=== PATIENT | female | born 1945 | race Hispanic/Latino ===

== ENCOUNTER 2018-08-11 04:10 | Emergency (ER) | payer MEDICARE, OTHER ==
[~2018-08-11] VITALS: Ht 149.9 cm; Wt 68.5 kg
[~2018-08-11 04:10] MED LIST: ADIPEX-P37.5 M1 PO; ADIPEX-P37.5 MG PO; ASPIR 8181 MG PO; ASPIRIN81 MG PO; B 12; CALCIUM 600 +1 EAC8 PO; CALCIUM 600 +1 EACH PO; COZAAR100 MG PO; COZAAR25 MG PO; FENOFIBRATE54 MG PO; FLUOXETINE HCL20 M1 PO; FLUOXETINE HCL40 MG PO; GLUCOSAMINE-MS1 EAC3 PO; HUMALOG100 UNIT/3 SQ; HUMALOG100 UNITS/ SC; HUMALOG100 UNITS/ SQ; HYDROCHLOROTHIA25 MG PO; LANTUS100 UNITS/ SC; LEVEMIR100 UNIT/1 PO; MELOXICAM15 MG PO; METFORMIN HCL1000 MG PO; METFORMIN HCL500 MG PO; NORCO 5-325 TA1 EACH PO; NOVOLOG100 UNITS1 SC; PLAVIX75 MG PO; SIMVASTATIN80 MG PO; TRICOR48 MG PO; TYLENOL # 31 EA PO; VITAMIN B-121000 MC1 PO
--- OUTSIDE RECORDS SUMMARY | 2018-08-11 04:15 | XMS REPORT ---
Author Author [facility] Address Unknown Phone Unavailable Care Team Providers Care Food Service Utility Worker Name Role Phone UNKNOWN, REFFERING PP Unavailable ONEIL SCHWARTZ M.D. Unavailable Unavailable Corinne SALDANA Unavailable Unavailable Corinne NESS Unavailable Unavailable Problems This patient has no known problems. Allergies, Adverse Reactions, Alerts This patient has no known allergies or adverse reactions. Medications This patient has no known medications. Results Test Description Test Time Test Comments Text Results Atomic Results Result Comments POC Glucose, Blood 2016-11-15 16:12:00 POC Glucose (test code=POCGLUC) 205 mg/dL 70-115 Notify RN or MDIf you consider your patient critically ill, the Claire Accu-Chek InformII metershould not be used for Glucose determinations.Draw a venous Glucose and send to the Main Lab for Analysis. POC Glucose, [id number] 11:29:00* Test Item Value Reference Range Comments POC Glucose (test code=POCGLUC) 88 mg/dL 70-115 If you consider your patient critically ill, the Claire Accu-Chek InformII metershould not be used for Glucose determinations.Draw a venous Glucose and send to the Main Lab for Analysis. POC Glucose, [id number] 07:00:00* Test Item Value Reference Range Comments POC Glucose (test code=POCGLUC) 203 mg/dL 70-115 Notify RN or MDIf you consider your patient critically ill, the Claire Accu-Chek InformII metershould not be used for Glucose determinations.Draw a venous Glucose and send to the Main Lab for Analysis. POC Glucose, [id number] 22:30:00* Test Item Value Reference Range Comments POC Glucose (test code=POCGLUC) 209 mg/dL 70-115 Notify RN or MDIf you consider your patient critically ill, the Claire Accu-Chek InformII metershould not be used for Glucose determinations.Draw a venous Glucose and send to the Main Lab for Analysis. POC Glucose, [id number] 17:43:00* Test Item Value Reference Range Comments POC Glucose (test code=POCGLUC) 150 mg/dL 70-115 If you consider your patient critically ill, the Claire Accu-Chek InformII metershould not be used for Glucose determinations.Draw a venous Glucose and send to the Main Lab for Analysis. POC Glucose, [id number] 11:41:00* Test Item Value Reference Range Comments POC Glucose (test code=POCGLUC) 210 mg/dL 70-115 If you consider your patient critically ill, the Claire Accu-Chek InformII metershould not be used for Glucose determinations.Draw a venous Glucose and send to the Main Lab for Analysis. POC Glucose, [id number] 05:52:00* Test Item Value Reference Range Comments POC Glucose (test code=POCGLUC) 129 mg/dL 70-115 If you consider your patient critically ill, the Claire Accu-Chek InformII metershould not be used for Glucose determinations.Draw a venous Glucose and send to the Main Lab for Analysis. POC Glucose, [id number] 21:16:00* Test Item Value Reference Range Comments POC Glucose (test code=POCGLUC) 212 mg/dL 70-115 If you consider your patient critically ill, the Claire Accu-Chek InformII metershould not be used for Glucose determinations.Draw a venous Glucose and send to the Main Lab for Analysis. POC Glucose, [id number] 16:44:00* Test Item Value Reference Range Comments POC Glucose (test code=POCGLUC) 146 mg/dL 70-115 If you consider your patient critically ill, the Claire Accu-Chek InformII metershould not be used for Glucose determinations.Draw a venous Glucose and send to the Main Lab for Analysis. POC Glucose, [id number] 11:34:00* Test Item Value Reference Range Comments POC Glucose (test code=POCGLUC) 142 mg/dL 70-115 If you consider your patient critically ill, the Claire Accu-Chek InformII metershould not be used for Glucose determinations.Draw a venous Glucose and send to the Main Lab for Analysis. POC Glucose, [id number] 05:50:00* Test Item Value Reference Range Comments POC Glucose (test code=POCGLUC) 94 mg/dL 70-115 If you consider your patient critically ill, the Claire Accu-Chek InformII metershould not be used for Glucose determinations.Draw a venous Glucose and send to the Main Lab for Analysis. POC Glucose, [id number] 20:55:00* Test Item Value Reference Range Comments POC Glucose (test code=POCGLUC) 261 mg/dL 70-115 If you consider your patient critically ill, the Claire Accu-Chek InformII metershould not be used for Glucose determinations.Draw a venous Glucose and send to the Main Lab for Analysis. POC Glucose, [id number] 17:43:00* Test Item Value Reference Range Comments POC Glucose (test code=POCGLUC) 111 mg/dL 70-115 Notify RN or MDIf you consider your patient critically ill, the Claire Accu-Chek InformII metershould not be used for Glucose determinations.Draw a venous Glucose and send to the Main Lab for Analysis. POC Glucose, [id number] 11:11:00* Test Item Value Reference Range Comments POC Glucose (test code=POCGLUC) 245 mg/dL 70-115 Notify RN or MDIf you consider your patient critically ill, the Claire Accu-Chek InformII metershould not be used for Glucose determinations.Draw a venous Glucose and send to the Main Lab for Analysis. CBC with [id number] 08:28:00* Test Item Value Reference Range Comments WBC (test code=WBC) 11.0 K/cumm 4.4-10.5 RBC (test code=RBC) 4.12 M/cumm 3.75-5.20 Hemoglobin (test code=HGB) 12.3 gm/dL 12.2-14.8 Hematocrit (test code=HCT) 38.2 % 36.5-44.4 MCV (test code=MCV) 92.5 fL 80-100 MCH (test code=MCH) 29.8 pg 27.0-32.5 MCHC (test code=MCHC) 32.2 g/dL 32.0-37.5 RDW (test code=RDW) 15.0 % 11.5-14.5 Platelet Count (test code=PLTCT) 436 K/cumm 140-440 MPV (test code=MPV) 9.0 fL Diff Method (test code=DIFFM) Manual Neutrophil (test code=NEUT) 35.0 % 36-70 Bands (test code=BAND) 56.0 % 0-6 Lymphocyte (test code=LYMPH) 1.0 % 12-44 Monocyte (test code=MONO) 4.0 % 0-11 Eosinophil (test code=EOS) 2.0 % 0-7 Basophil (test code=BASO) 2.0 % 0-2 Neutro Abs (test code=ANEUT) 10.0 K/cumm 1.6-7.4 Lymph Abs (test code=ALYMPH) 0.1 K/cumm 0.5-4.6 [place] Abs (test code=AMONO) 0.4 K/cumm 0.0-1.2 Eos Abs (test code=AEOS) 0.22 K/cumm 0.00-0.74 Baso Abs (test code=ABASO) 0.2 K/cumm 0.00-0.21 RBC Morphology (test code=RBCMRPH) Normal Platelet Est (test code=PLTEST) Adequate Platelets on Smear Vancomycin, [id number] 08:17:00* Test Item Value Reference Range Comments Vanco, Trou (test code=VANTR) 15.9 ug/mL 10.0-20.0 Comprehensive Metabolic [id number] 07:10:00* Test Item Value Reference Range Comments Sodium (test code=NA) 139 mmol/L 135-145 Potassium (test code=K) 4.0 mmol/L 3.5-5.1 Chloride (test code=CL) 101 mmol/L 98-105 Carbon Dioxide (test code=CO2) 28 mmol/L 22-29 Glucose (test code=GLU) 92 mg/dL 70-115 Blood Urea Nitrogen (test code=BUN) 16 mg/dL 8-23 Creatinine (test code=CREAT) 0.6 mg/dL 0.5-0.9 Calcium (test code=CA) 9.3 mg/dL 8.3-10.5 Prot Total (test code=TP) 6.2 g/dL 6.4-8.3 Albumin (test code=ALB) 3.5 g/dL 3.5-5.2 A/G Ratio (test code=AGRATIO) 1.3 Ratio Globulin (test code=GLOB) 2.7 2.9-3.1 Bili Total (test code=TBIL) 0.2 mg/dL 0.1-0.9 Alk Phos (test code=APHOS) 54 U/L 35-104 AST (test code=AST) 14 U/L 1-32 ALT (test code=ALT) 9 U/L 1-33 BUN/Creatinine Ratio (test code=BCRATIO) 26.7 Anion Gap (test code=AGAP) 10 mmol/L 7-16 Estimated GFR (test code=GFR) >60 mL/min/1.73m2 eGFR (estimated Glomerular Filtration Rate) is an estimated value,calculated from the patient's serum creatinine using the MDRD equation.It is NOT the patient's actual GFR. The eGFR provides a more clinicallyuseful measure of kidney disease than serum creatinine alone.This calculation takes sex and race into account, if the informationis provided. If the race is not provided, and the patient isAfrican-Omani, multiply by 1.212. If sex is not provided, and thepatient is female, multiply by 0.742. Results for patients <18 years ofage have not been validated by the MDRD study and should be interpretedwith caution.eGFR Result Interpretation:eGFR > or=60 is in the Normal RangeeGFR < 60 may mean kidney diseaseeGFR < 15 may mean kidney failureRanges recommended by the National Kidney Foundat ion,http://nkdep.nih.gov POC Glucose, [id number] 06:39:00* Test Item Value Reference Range Comments POC Glucose (test code=POCGLUC) 90 mg/dL 70-115 Notify RN or MDIf you consider your patient critically ill, the Claire Accu-Chek InformII metershould not be used for Glucose determinations.Draw a venous Glucose and send to the Main Lab for Analysis. POC Glucose, [id number] 21:10:00* Test Item Value Reference Range Comments POC Glucose (test code=POCGLUC) 229 mg/dL 70-115 Notify RN or MDIf you consider your patient critically ill, the Claire Accu-Chek InformII metershould not be used for Glucose determinations.Draw a venous Glucose and send to the Main Lab for Analysis. POC Glucose, [id number] 11:57:00* Test Item Value Reference Range Comments POC Glucose (test code=POCGLUC) 197 mg/dL 70-115 If you consider your patient critically ill, the Claire Accu-Chek InformII metershould not be used for Glucose determinations.Draw a venous Glucose and send to the Main Lab for Analysis. POC Glucose, [id number] 06:40:00* Test Item Value Reference Range Comments POC Glucose (test code=POCGLUC) 95 mg/dL 70-115 Notify RN or MDIf you consider your patient critically ill, the Claire Accu-Chek InformII metershould not be used for Glucose determinations.Draw a venous Glucose and send to the Main Lab for Analysis. POC Glucose, [id number] 21:45:00* Test Item Value Reference Range Comments POC Glucose (test code=POCGLUC) 212 mg/dL 70-115 Notify RN or MDIf you consider your patient critically ill, the Claire Accu-Chek InformII metershould not be used for Glucose determinations.Draw a venous Glucose and send to the Main Lab for Analysis. POC Glucose, [id number] 16:32:00* Test Item Value Reference Range Comments POC Glucose (test code=POCGLUC) 209 mg/dL 70-115 If you consider your patient critically ill, the Claire Accu-Chek InformII metershould not be used for Glucose determinations.Draw a venous Glucose and send to the Main Lab for Analysis. POC Glucose, [id number] 12:39:00* Test Item Value Reference Range Comments POC Glucose (test code=POCGLUC) 233 mg/dL 70-115 If you consider your patient critically ill, the Claire Accu-Chek InformII metershould not be used for Glucose determinations.Draw a venous Glucose and send to the Main Lab for Analysis. POC Glucose, [id number] 07:15:00* Test Item Value Reference Range Comments POC Glucose (test code=POCGLUC) 77 mg/dL 70-115 Notify RN or MDIf you consider your patient critically ill, the Claire Accu-Chek InformII metershould not be used for Glucose determinations.Draw a venous Glucose and send to the Main Lab for Analysis. POC Glucose, [id number] 22:45:00* Test Item Value Reference Range Comments POC Glucose (test code=POCGLUC) 189 mg/dL 70-115 Notify RN or MDIf you consider your patient critically ill, the Claire Accu-Chek InformII metershould not be used for Glucose determinations.Draw a venous Glucose and send to the Main Lab for Analysis. POC Glucose, [id number] 16:15:00* Test Item Value Reference Range Comments POC Glucose (test code=POCGLUC) 182 mg/dL 70-115 Notify RN or MDIf you consider your patient critically ill, the Claire Accu-Chek InformII metershould not be used for Glucose determinations.Draw a venous Glucose and send to the Main Lab for Analysis. POC Glucose, [id number] 11:21:00* Test Item Value Reference Range Comments POC Glucose (test code=POCGLUC) 184 mg/dL 70-115 If you consider your patient critically ill, the Claire Accu-Chek InformII metershould not be used for Glucose determinations.Draw a venous Glucose and send to the Main Lab for Analysis. POC Glucose, [id number] 05:08:00* Test Item Value Reference Range Comments POC Glucose (test code=POCGLUC) 107 mg/dL 70-115 If you consider your patient critically ill, the Claire Accu-Chek InformII metershould not be used for Glucose determinations.Draw a venous Glucose and send to the Main Lab for Analysis. POC Glucose, [id number] 21:34:00* Test Item Value Reference Range Comments POC Glucose (test code=POCGLUC) 316 mg/dL 70-115 If you consider your patient critically ill, the Claire Accu-Chek InformII metershould not be used for Glucose determinations.Draw a venous Glucose and send to the Main Lab for Analysis. POC Glucose, [id number] 16:05:00* Test Item Value Reference Range Comments POC Glucose (test code=POCGLUC) 139 mg/dL 70-115 Notify RN or MDIf you consider your patient critically ill, the Claire Accu-Chek InformII metershould not be used for Glucose determinations.Draw a venous Glucose and send to the Main Lab for Analysis. POC Glucose, [id number] 10:10:00* Test Item Value Reference Range Comments POC Glucose (test code=POCGLUC) 275 mg/dL 70-115 If you consider your patient critically ill, the Claire Accu-Chek InformII metershould not be used for Glucose determinations.Draw a venous Glucose and send to the Main Lab for Analysis. POC Glucose, [id number] 05:22:00* Test Item Value Reference Range Comments POC Glucose (test code=POCGLUC) 133 mg/dL 70-115 If you consider your patient critically ill, the Claire Accu-Chek InformII metershould not be used for Glucose determinations.Draw a venous Glucose and send to the Main Lab for Analysis. Vancomycin, [id number] 20:57:00* Test Item Value Reference Range Comments [place] (test code=VANTR) 11.4 ug/mL 10.0-20.0 POC Glucose, [id number] 20:11:00* Test Item Value Reference Range Comments POC Glucose (test code=POCGLUC) 229 mg/dL 70-115 If you consider your patient critically ill, the Claire Accu-Chek InformII metershould not be used for Glucose determinations.Draw a venous Glucose and send to the Main Lab for Analysis. POC Glucose, [id number] 15:36:00* Test Item Value Reference Range Comments POC Glucose (test code=POCGLUC) 144 mg/dL 70-115 If you consider your patient critically ill, the Claire Accu-Chek InformII metershould not be used for Glucose determinations.Draw a venous Glucose and send to the Main Lab for Analysis. POC Glucose, [id number] 10:54:00* Test Item Value Reference Range Comments POC Glucose (test code=POCGLUC) 167 mg/dL 70-115 If you consider your patient critically ill, the Claire Accu-Chek InformII metershould not be used for Glucose determinations.Draw a venous Glucose and send to the Main Lab for Analysis. POC Glucose, [id number] 04:59:00* Test Item Value Reference Range Comments POC Glucose (test code=POCGLUC) 86 mg/dL 70-115 If you consider your patient critically ill, the Claire Accu-Chek InformII metershould not be used for Glucose determinations.Draw a venous Glucose and send to the Main Lab for Analysis. POC Glucose, [id number] 20:09:00* Test Item Value Reference Range Comments POC Glucose (test code=POCGLUC) 174 mg/dL 70-115 If you consider your patient critically ill, the Claire Accu-Chek InformII metershould not be used for Glucose determinations.Draw a venous Glucose and send to the Main Lab for Analysis. POC Glucose, [id number] 16:37:00* Test Item Value Reference Range Comments POC Glucose (test code=POCGLUC) 226 mg/dL 70-115 If you consider your patient critically ill, the Claire Accu-Chek InformII metershould not be used for Glucose determinations.Draw a venous Glucose and send to the Main Lab for Analysis. POC Glucose, [id number] 11:18:00* Test Item Value Reference Range Comments POC Glucose (test code=POCGLUC) 254 mg/dL 70-115 If you consider your patient critically ill, the Claire Accu-Chek InformII metershould not be used for Glucose determinations.Draw a venous Glucose and send to the Main Lab for Analysis. Basic Metabolic [id number] 06:29:00* Test Item Value Reference Range Comments Sodium (test code=NA) 142 mmol/L 135-145 Potassium (test code=K) 4.3 mmol/L 3.5-5.1 Chloride (test code=CL) 104 mmol/L 98-105 Carbon Dioxide (test code=CO2) 29 mmol/L 22-29 Glucose (test code=GLU) 99 mg/dL 70-115 Blood Urea Nitrogen (test code=BUN) 10 mg/dL 8-23 Creatinine (test code=CREAT) 0.5 mg/dL 0.5-0.9 Calcium (test code=CA) 8.9 mg/dL 8.3-10.5 BUN/Creatinine Ratio (test code=BCRATIO) 20.0 Anion Gap (test code=AGAP) 9 mmol/L 7-16 Estimated GFR (test code=GFR) >60 mL/min/1.73m2 eGFR (estimated Glomerular Filtration Rate) is an estimated value,calculated from the patient's serum creatinine using the MDRD equation.It is NOT the patient's actual GFR. The eGFR provides a more clinicallyuseful measure of kidney disease than serum creatinine alone.This calculation takes sex and race into account, if the informationis provided. If the race is not provided, and the patient isAfrican-Omani, multiply by 1.212. If sex is not provided, and thepatient is female, multiply by 0.742. Results for patients <18 years ofage have not been validated by the MDRD study and should be interpretedwith caution.eGFR Result Interpretation:eGFR > or=60 is in the Normal RangeeGFR < 60 may mean kidney diseaseeGFR < 15 may mean kidney failureRanges recommended by the National Kidney Foundat ion,http://nkdep.nih.gov CBC with [id number] 06:21:00* Test Item Value Reference Range Comments WBC (test code=WBC) 9.7 K/cumm 4.4-10.5 RBC (test code=RBC) 3.77 M/cumm 3.75-5.20 Hemoglobin (test code=HGB) 11.5 gm/dL 12.2-14.8 Hematocrit (test code=HCT) 34.6 % 36.5-44.4 MCV (test code=MCV) 91.7 fL 80-100 MCH (test code=MCH) 30.4 pg 27.0-32.5 MCHC (test code=MCHC) 33.1 g/dL 32.0-37.5 RDW (test code=RDW) 14.7 % 11.5-14.5 Platelet Count (test code=PLTCT) 418 K/cumm 140-440 MPV (test code=MPV) 8.7 fL Diff Method (test code=DIFFM) Auto Neutrophil (test code=NEUT) 45.2 % 36-70 Lymphocyte (test code=LYMPH) 47.3 % 12-44 Monocyte (test code=MONO) 3.5 % 0-11 Eosinophil (test code=EOS) 2.8 % 0-7 Basophil (test code=BASO) 1.2 % 0-2 Neutro Abs (test code=ANEUT) 4.4 K/cumm 1.6-7.4 Lymph Abs (test code=ALYMPH) 4.6 K/cumm 0.5-4.6 [place] Abs (test code=AMONO) 0.3 K/cumm 0.0-1.2 Eos Abs (test code=AEOS) 0.27 K/cumm 0.00-0.74 Baso Abs (test code=ABASO) 0.1 K/cumm 0.00-0.21 POC Glucose, [id number] 05:41:00* Test Item Value Reference Range Comments POC Glucose (test code=POCGLUC) 87 mg/dL 70-115 If you consider your patient critically ill, the Claire Accu-Chek InformII metershould not be used for Glucose determinations.Draw a venous Glucose and send to the Main Lab for Analysis. POC Glucose, [id number] 21:24:00* Test Item Value Reference Range Comments POC Glucose (test code=POCGLUC) 228 mg/dL 70-115 If you consider your patient critically ill, the Claire Accu-Chek InformII metershould not be used for Glucose determinations.Draw a venous Glucose and send to the Main Lab for Analysis. Vancomycin, [id number] 21:23:00* Test Item Value Reference Range Comments [place] (test code=VANTR) 6.7 ug/mL 10.0-20.0 POC Glucose, [id number] 15:12:00* Test Item Value Reference Range Comments POC Glucose (test code=POCGLUC) 177 mg/dL 70-115 Notify RN or MDIf you consider your patient critically ill, the Claire Accu-Chek InformII metershould not be used for Glucose determinations.Draw a venous Glucose and send to the Main Lab for Analysis. POC Glucose, [id number] 11:46:00* Test Item Value Reference Range Comments POC Glucose (test code=POCGLUC) 274 mg/dL 70-115 If you consider your patient critically ill, the Claire Accu-Chek InformII metershould not be used for Glucose determinations.Draw a venous Glucose and send to the Main Lab for Analysis. POC Glucose, [id number] 09:15:00* Test Item Value Reference Range Comments POC Glucose (test code=POCGLUC) 244 mg/dL 70-115 If you consider your patient critically ill, the Claire Accu-Chek InformII metershould not be used for Glucose determinations.Draw a venous Glucose and send to the Main Lab for Analysis. POC Glucose, [id number] 05:33:00* Test Item Value Reference Range Comments POC Glucose (test code=POCGLUC) 196 mg/dL 70-115 If you consider your patient critically ill, the Claire Accu-Chek InformII metershould not be used for Glucose determinations.Draw a venous Glucose and send to the Main Lab for Analysis. POC Glucose, [id number] 19:37:00* Test Item Value Reference Range Comments POC Glucose (test code=POCGLUC) 213 mg/dL 70-115 If you consider your patient critically ill, the Claire Accu-Chek InformII metershould not be used for Glucose determinations.Draw a venous Glucose and send to the Main Lab for Analysis. POC Glucose, [id number] 16:37:00* Test Item Value Reference Range Comments POC Glucose (test code=POCGLUC) 350 mg/dL 70-115 Notify RN or MDIf you consider your patient critically ill, the Claire Accu-Chek InformII metershould not be used for Glucose determinations.Draw a venous Glucose and send to the Main Lab for Analysis. POC Glucose, [id number] 11:49:00* Test Item Value Reference Range Comments POC Glucose (test code=POCGLUC) 264 mg/dL 70-115 Notify RN or MDIf you consider your patient critically ill, the Claire Accu-Chek InformII metershould not be used for Glucose determinations.Draw a venous Glucose and send to the Main Lab for Analysis. Vancomycin, [id number] 06:39:00* Test Item Value Reference Range Comments [place] Trou (test code=VANTR) 10.5 ug/mL 10.0-20.0 Comprehensive Metabolic [id number] 06:39:00* Test Item Value Reference Range Comments Sodium (test code=NA) 138 mmol/L 135-145 Potassium (test code=K) 4.3 mmol/L 3.5-5.1 Chloride (test code=CL) 103 mmol/L 98-105 Carbon Dioxide (test code=CO2) 30 mmol/L 22-29 Glucose (test code=GLU) 198 mg/dL 70-115 Blood Urea Nitrogen (test code=BUN) 10 mg/dL 8-23 Creatinine (test code=CREAT) 0.6 mg/dL 0.5-0.9 Calcium (test code=CA) 8.9 mg/dL 8.3-10.5 Prot Total (test code=TP) 5.6 g/dL 6.4-8.3 Albumin (test code=ALB) 2.9 g/dL 3.5-5.2 A/G Ratio (test code=AGRATIO) 1.1 Ratio Globulin (test code=GLOB) 2.7 2.9-3.1 Bili Total (test code=TBIL) <0.1 mg/dL 0.1-0.9 Alk Phos (test code=APHOS) 52 U/L 35-104 AST (test code=AST) 10 U/L 1-32 ALT (test code=ALT) 6 U/L 1-33 BUN/Creatinine Ratio (test code=BCRATIO) 16.7 Anion Gap (test code=AGAP) 5 mmol/L 7-16 Estimated GFR (test code=GFR) >60 mL/min/1.73m2 eGFR (estimated Glomerular Filtration Rate) is an estimated value,calculated from the patient's serum creatinine using the MDRD equation.It is NOT the patient's actual GFR. The eGFR provides a more clinicallyuseful measure of kidney disease than serum creatinine alone.This calculation takes sex and race into account, if the informationis provided. If the race is not provided, and the patient isAfrican-[place]i, multiply by 1.212. If sex is not provided, and thepatient is female, multiply by 0.742. Results for patients <18 years ofage have not been validated by the MDRD study and should be interpretedwith caution.eGFR Result Interpretation:eGFR > or=60 is in the Normal RangeeGFR < 60 may mean kidney diseaseeGFR < 15 may mean kidney failureRanges recommended by the National Kidney Foundat ion,http://nkdep.nih.gov CBC with [id number] 06:35:00* Test Item Value Reference Range Comments WBC (test code=WBC) 9.7 K/cumm 4.4-10.5 RBC (test code=RBC) 3.61 M/cumm 3.75-5.20 Hemoglobin (test code=HGB) 10.9 gm/dL 12.2-14.8 Hematocrit (test code=HCT) 34.3 % 36.5-44.4 MCV (test code=MCV) 95.1 fL 80-100 MCH (test code=MCH) 30.3 pg 27.0-32.5 MCHC (test code=MCHC) 31.9 g/dL 32.0-37.5 RDW (test code=RDW) 14.2 % 11.5-14.5 Platelet Count (test code=PLTCT) 391 K/cumm 140-440 MPV (test code=MPV) 8.0 fL Diff Method (test code=DIFFM) Auto Neutrophil (test code=NEUT) 39.7 % 36-70 Lymphocyte (test code=LYMPH) 50.0 % 12-44 Monocyte (test code=MONO) 6.7 % 0-11 Eosinophil (test code=EOS) 2.7 % 0-7 Basophil (test code=BASO) 1.0 % 0-2 Neutro Abs (test code=ANEUT) 3.9 K/cumm 1.6-7.4 Lymph Abs (test code=ALYMPH) 4.8 K/cumm 0.5-4.6 [place] Abs (test code=AMONO) 0.7 K/cumm 0.0-1.2 Eos Abs (test code=AEOS) 0.26 K/cumm 0.00-0.74 Baso Abs (test code=ABASO) 0.1 K/cumm 0.00-0.21 POC Glucose, [id number] 04:39:00* Test Item Value Reference Range Comments POC Glucose (test code=POCGLUC) 188 mg/dL 70-115 If you consider your patient critically ill, the Claire Accu-Chek InformII metershould not be used for Glucose determinations.Draw a venous Glucose and send to the Main Lab for Analysis. POC Glucose, [id number] 19:45:00* Test Item Value Reference Range Comments POC Glucose (test code=POCGLUC) 257 mg/dL 70-115 If you consider your patient critically ill, the Claire Accu-Chek InformII metershould not be used for Glucose determinations.Draw a venous Glucose and send to the Main Lab for Analysis. POC Glucose, [id number] 16:23:00* Test Item Value Reference Range Comments POC Glucose (test code=POCGLUC) 205 mg/dL 70-115 Notify RN or MDIf you consider your patient critically ill, the Claire Accu-Chek InformII metershould not be used for Glucose determinations.Draw a venous Glucose and send to the Main Lab for Analysis. POC Glucose, [id number] 11:34:00* Test Item Value Reference Range Comments POC Glucose (test code=POCGLUC) 337 mg/dL 70-115 Notify RN or MDIf you consider your patient critically ill, the Claire Accu-Chek InformII metershould not be used for Glucose determinations.Draw a venous Glucose and send to the Main Lab for Analysis. Culture, Wound [id number] 07:31:00Specimen: BackCollected: 10/31/2016 05:30 Status: Final Last Updated: 11/03/2016 07:31 Gram Stain (Final) (Final) 10/31/16 Few Gram Positive Cocci In Pairs , No WBC'S Culture Result (Final) (Final) 11/01/16 Moderate Staph-coag negative 11/03/2016 Anaerobic culture:No anaerobes isolated at 3 days Isolate (Final) (Final) 11/02/16 Moderate Streptococcus agalactiae POC Glucose, Blood 2016-11-03 04:46:00* Test Item Value Reference Range Comments POC Glucose (test code=POCGLUC) 239 mg/dL 70-115 If you consider your patient critically ill, the Claire Accu-Chek InformII metershould not be used for Glucose determinations.Draw a venous Glucose and send to the Main Lab for Analysis. POC Glucose, [id number] 21:24:00* Test Item Value Reference Range Comments POC Glucose (test code=POCGLUC) 216 mg/dL 70-115 If you consider your patient critically ill, the Claire Accu-Chek InformII metershould not be used for Glucose determinations.Draw a venous Glucose and send to the Main Lab for Analysis. POC Glucose, [id number] 15:22:00* Test Item Value Reference Range Comments POC Glucose (test code=POCGLUC) 207 mg/dL 70-115 If you consider your patient critically ill, the Claire Accu-Chek InformII metershould not be used for Glucose determinations.Draw a venous Glucose and send to the Main Lab for Analysis. POC Glucose, [id number] 12:39:00* Test Item Value Reference Range Comments POC Glucose (test code=POCGLUC) 308 mg/dL 70-115 If you consider your patient critically ill, the Claire Accu-Chek InformII metershould not be used for Glucose determinations.Draw a venous Glucose and send to the Main Lab for Analysis. POC Glucose, [id number] 10:32:00* Test Item Value Reference Range Comments POC Glucose (test code=POCGLUC) 357 mg/dL 70-115 If you consider your patient critically ill, the Claire Accu-Chek InformII metershould not be used for Glucose determinations.Draw a venous Glucose and send to the Main Lab for Analysis. POC Glucose, [id number] 06:05:00* Test Item Value Reference Range Comments POC Glucose (test code=POCGLUC) 281 mg/dL 70-115 If you consider your patient critically ill, the Claire Accu-Chek InformII metershould not be used for Glucose determinations.Draw a venous Glucose and send to the Main Lab for Analysis. Vancomycin, [id number] 23:15:00* Test Item Value Reference Range Comments [place] (test code=VANTR) 5.5 ug/mL 10.0-20.0 POC Glucose, [id number] 21:23:00* Test Item Value Reference Range Comments POC Glucose (test code=POCGLUC) 102 mg/dL 70-115 If you consider your patient critically ill, the Claire Accu-Chek InformII metershould not be used for Glucose determinations.Draw a venous Glucose and send to the Main Lab for Analysis. POC Glucose, [id number] 16:35:00* Test Item Value Reference Range Comments POC Glucose (test code=POCGLUC) 225 mg/dL 70-115 If you consider your patient critically ill, the Claire Accu-Chek InformII metershould not be used for Glucose determinations.Draw a venous Glucose and send to the Main Lab for Analysis. POC Glucose, [id number] 11:34:00* Test Item Value Reference Range Comments POC Glucose (test code=POCGLUC) 236 mg/dL 70-115 If you consider your patient critically ill, the Claire Accu-Chek InformII metershould not be used for Glucose determinations.Draw a venous Glucose and send to the Main Lab for Analysis. POC Glucose, [id number] 06:17:00* Test Item Value Reference Range Comments POC Glucose (test code=POCGLUC) 135 mg/dL 70-115 If you consider your patient critically ill, the Claire Accu-Chek InformII metershould not be used for Glucose determinations.Draw a venous Glucose and send to the Main Lab for Analysis. POC Glucose, [id number] 21:43:00* Test Item Value Reference Range Comments POC Glucose (test code=POCGLUC) 154 mg/dL 70-115 If you consider your patient critically ill, the [facility] Accu-Chek InformII metershould not be used for Glucose determinations.Draw a venous Glucose and send to the Main Lab for Analysis. POC Glucose, [id number] 16:08:00* Test Item Value Reference Range Comments POC Glucose (test code=POCGLUC) 235 mg/dL 70-115 If you consider your patient critically ill, the [facility] Accu-Chek InformII metershould not be used for Glucose determinations.Draw a venous Glucose and send to the Main Lab for Analysis. POC Glucose, [id number] 11:32:00* Test Item Value Reference Range Comments POC Glucose (test code=POCGLUC) 206 mg/dL 70-115 If you consider your patient critically ill, the [facility] Accu-Chek InformII metershould not be used for Glucose determinations.Draw a venous Glucose and send to the Main Lab for Analysis. POC Glucose, [id number] 07:50:00* Test Item Value Reference Range Comments POC Glucose (test code=POCGLUC) 138 mg/dL 70-115 If you consider your patient critically ill, the [facility] Accu-Chek InformII metershould not be used for Glucose determinations.Draw a venous Glucose and send to the Main Lab for Analysis. POC Glucose, [id number] 04:20:00* Test Item Value Reference Range Comments POC Glucose (test code=POCGLUC) 143 mg/dL 70-115 If you consider your patient critically ill, the Claire Accu-Chek InformII metershould not be used for Glucose determinations.Draw a venous Glucose and send to the Main Lab for Analysis. POC Glucose, [id number] 15:41:00* Test Item Value Reference Range Comments POC Glucose (test code=POCGLUC) 168 mg/dL 70-115 If you consider your patient critically ill, the [facility] Accu-Chek InformII metershould not be used for Glucose determinations.Draw a venous Glucose and send to the Main Lab for Analysis. POC Glucose, [id number] 11:10:00* Test Item Value Reference Range Comments POC Glucose (test code=POCGLUC) 251 mg/dL 70-115 If you consider your patient critically ill, the Claire Accu-Chek InformII metershould not be used for Glucose determinations.Draw a venous Glucose and send to the Main Lab for Analysis. [id number] 07:02:00* Test Item Value Reference Range Comments Osmolality [Serum] (test code=CMOSMOS) 298 mOsm/Kg 270-295 Thyroid Stimulating Hormone (TSH)2016-10-30 06:55:00* Test Item Value Reference Range Comments TSH (test code=TSH) 2.45 mIU/mL 0.270-4.200 Glycosylated [id number] 06:53:00* Test Item Value Reference Range Comments HBA1c (test code=HBA1C) 10.1 % 4.8-5.9 C-Reactive Protein, [id number] 06:49:00* Test Item Value Reference Range Comments CRP (test code=CRP) 201.3 mg/L 0.0-5.0 Lipid [id number] 06:49:00* Test Item Value Reference Range Comments Cholesterol (test code=CHOL) 170 mg/dL 0-200 Triglycerides (test code=TRIG) 122 mg/dL 9-200 HDL (test code=HDL) 64 mg/dL 50-60 Chol/HDL (test code=CHOLPHDL) 2.7 Ratio 0.0-4.4 LDL, Calculated (test code=LDLC) 82 0-130 (NOTE)RISK OF HEART DISEASEPublished by [place]i Heart AssociationAnalyte Optimal Boderline Increased RiskCHOL <200 200-239 >240TRIG <150 150- 199 >200HDL Male: >60 <40HDL Female: >60 <50LDL <100 130-159 >160LDL NEAR OPTIMAL IS 100-129 VLDL (test code=VLDL) 24 mg/dL 5-40 LDL/HDL (test code=LDLPHDL) 1 [id number] 06:49:00* Test Item Value Reference Range Comments Phosphorus (test code=PO4) 4.1 mg/dL 2.70-4.50 Magnesium, [id number] 06:49:00* Test Item Value Reference Range Comments Magnesium (test code=MG) 1.9 mg/dL 1.7-2.5 Basic Metabolic [id number] 06:49:00* Test Item Value Reference Range Comments Sodium (test code=NA) 136 mmol/L 135-145 Potassium (test code=K) 4.3 mmol/L 3.5-5.1 Chloride (test code=CL) 95 mmol/L 98-105 Carbon Dioxide (test code=CO2) 27 mmol/L 22-29 Glucose (test code=GLU) 250 mg/dL 70-115 Blood Urea Nitrogen (test code=BUN) 15 mg/dL 8-23 Creatinine (test code=CREAT) 0.6 mg/dL 0.5-0.9 Calcium (test code=CA) 9.4 mg/dL 8.3-10.5 BUN/Creatinine Ratio (test code=BCRATIO) 25.0 Anion Gap (test code=AGAP) 14 mmol/L 7-16 Estimated GFR (test code=GFR) >60 mL/min/1.73m2 eGFR (estimated Glomerular Filtration Rate) is an estimated value,calculated from the patient's serum creatinine using the MDRD equation.It is NOT the patient's actual GFR. The eGFR provides a more clinicallyuseful measure of kidney disease than serum creatinine alone.This calculation takes sex and race into account, if the informationis provided. If the race is not provided, and the patient isAfrican-[place], multiply by 1.212. If sex is not provided, and thepatient is female, multiply by 0.742. Results for patients <18 years ofage have not been validated by the MDRD study and should be interpretedwith caution.eGFR Result Interpretation:eGFR > or=60 is in the Normal RangeeGFR < 60 may mean kidney diseaseeGFR < 15 may mean kidney failureRanges recommended by the National Kidney Foundat ion,http://nkdep.nih.gov CBC with [id number] 06:33:00* Test Item Value Reference Range Comments WBC (test code=WBC) 11.2 K/cumm 4.4-10.5 RBC (test code=RBC) 3.79 M/cumm 3.75-5.20 Hemoglobin (test code=HGB) 11.6 gm/dL 12.2-14.8 Hematocrit (test code=HCT) 34.4 % 36.5-44.4 MCV (test code=MCV) 90.8 fL 80-100 MCH (test code=MCH) 30.7 pg 27.0-32.5 MCHC (test code=MCHC) 33.8 g/dL 32.0-37.5 RDW (test code=RDW) 14.3 % 11.5-14.5 Platelet Count (test code=PLTCT) 233 K/cumm 140-440 MPV (test code=MPV) 9.4 fL Diff Method (test code=DIFFM) Auto Neutrophil (test code=NEUT) 55.9 % 36-70 Lymphocyte (test code=LYMPH) 37.2 % 12-44 Monocyte (test code=MONO) 5.2 % 0-11 Eosinophil (test code=EOS) 1.3 % 0-7 Basophil (test code=BASO) 0.4 % 0-2 Neutro Abs (test code=ANEUT) 6.3 K/cumm 1.6-7.4 Lymph Abs (test code=ALYMPH) 4.2 K/cumm 0.5-4.6 [place] Abs (test code=AMONO) 0.6 K/cumm 0.0-1.2 Eos Abs (test code=AEOS) 0.14 K/cumm 0.00-0.74 Baso Abs (test code=ABASO) 0.1 K/cumm 0.00-0.21 Comprehensive Metabolic [id number] 21:56:00* Test Item Value Reference Range Comments Sodium (test code=NA) 128 mmol/L 135-145 Potassium (test code=K) 4.3 mmol/L 3.5-5.1 Hemolyzed Chloride (test code=CL) 86 mmol/L 98-105 Carbon Dioxide (test code=CO2) 26 mmol/L 22-29 Glucose (test code=GLU) 349 mg/dL 70-115 Blood Urea Nitrogen (test code=BUN) 16 mg/dL 8-23 Creatinine (test code=CREAT) 0.8 mg/dL 0.5-0.9 Calcium (test code=CA) 10.2 mg/dL 8.3-10.5 Prot Total (test code=TP) 7.7 g/dL 6.4-8.3 Albumin (test code=ALB) 4.0 g/dL 3.5-5.2 A/G Ratio (test code=AGRATIO) 1.1 Ratio Globulin (test code=GLOB) 3.7 2.9-3.1 Bili Total (test code=TBIL) 0.5 mg/dL 0.1-0.9 Alk Phos (test code=APHOS) 84 U/L 35-104 AST (test code=AST) 22 U/L 1-32 Hemolyzed ALT (test code=ALT) 6 U/L 1-33 BUN/Creatinine Ratio (test code=BCRATIO) 20.0 Anion Gap (test code=AGAP) 16 mmol/L 7-16 Estimated GFR (test code=GFR) >60 mL/min/1.73m2 eGFR (estimated Glomerular Filtration Rate) is an estimated value,calculated from the patient's serum creatinine using the MDRD equation.It is NOT the patient's actual GFR. The eGFR provides a more clinicallyuseful measure of kidney disease than serum creatinine alone.This calculation takes sex and race into account, if the informationis provided. If the race is not provided, and the patient isAfrican-[place]i, multiply by 1.212. If sex is not provided, and thepatient is female, multiply by 0.742. Results for patients <18 years ofage have not been validated by the MDRD study and should be interpretedwith caution.eGFR Result Interpretation:eGFR > or=60 is in the Normal RangeeGFR < 60 may mean kidney diseaseeGFR < 15 may mean kidney failureRanges recommended by the National Kidney Foundat ion,http://nkdep.nih.gov CBC with [id number] 21:36:00* Test Item Value Reference Range Comments WBC (test code=WBC) 12.0 K/cumm 4.4-10.5 RBC (test code=RBC) 4.42 M/cumm 3.75-5.20 Hemoglobin (test code=HGB) 13.3 gm/dL 12.2-14.8 Hematocrit (test code=HCT) 40.1 % 36.5-44.4 MCV (test code=MCV) 90.7 fL 80-100 MCH (test code=MCH) 30.1 pg 27.0-32.5 MCHC (test code=MCHC) 33.1 g/dL 32.0-37.5 RDW (test code=RDW) 14.3 % 11.5-14.5 Platelet Count (test code=PLTCT) 253 K/cumm 140-440 MPV (test code=MPV) 9.8 fL Diff Method (test code=DIFFM) Auto Neutrophil (test code=NEUT) 75.8 % 36-70 Lymphocyte (test code=LYMPH) 16.8 % 12-44 Monocyte (test code=MONO) 6.2 % 0-11 Eosinophil (test code=EOS) 0.6 % 0-7 Basophil (test code=BASO) 0.5 % 0-2 Neutro Abs (test code=ANEUT) 8.7 K/cumm 1.6-7.4 Lymph Abs (test code=ALYMPH) 1.9 K/cumm 0.5-4.6 [place] Abs (test code=AMONO) 0.7 K/cumm 0.0-1.2 Eos Abs (test code=AEOS) 0.07 K/cumm 0.00-0.74 Baso Abs (test code=ABASO) 0.1 K/cumm 0.00-0.21 RBC Morphology (test code=RBCMRPH) Not Indicated Platelet Est (test code=PLTEST) Not Indicated POC Glucose, [id number] 06:06:00* Test Item Value Reference Range Comments POC Glucose (test code=POCGLUC) 132 mg/dL 70-115 Notify RN or MDIf you consider your patient critically ill, the [facility] Accu-Chek InformII metershould not be used for Glucose determinations.Draw a venous Glucose and send to the Main Lab for Analysis. POC Glucose, [id number] 21:32:00* Test Item Value Reference Range Comments POC Glucose (test code=POCGLUC) 276 mg/dL 70-115 Notify RN or MDIf you consider your patient critically ill, the [facility] Accu-Chek InformII metershould not be used for Glucose determinations.Draw a venous Glucose and send to the Main Lab for Analysis. POC Glucose, [id number] 16:09:00* Test Item Value Reference Range Comments POC Glucose (test code=POCGLUC) 121 mg/dL 70-115 Notify RN or MDIf you consider your patient critically ill, the [facility] Accu-Chek InformII metershould not be used for Glucose determinations.Draw a venous Glucose and send to the Main Lab for Analysis. POC Glucose, [id number] 04:37:00* Test Item Value Reference Range Comments POC Glucose (test code=POCGLUC) 268 mg/dL 70-115 If you consider your patient critically ill, the [facility] Accu-Chek InformII metershould not be used for Glucose determinations.Draw a venous Glucose and send to the Main Lab for Analysis. POC Glucose, [id number] 00:38:00* Test Item Value Reference Range Comments POC Glucose (test code=POCGLUC) 266 mg/dL 70-115 Notify RN or MDIf you consider your patient critically ill, the [facility] Accu-Chek InformII metershould not be used for Glucose determinations.Draw a venous Glucose and send to the Main Lab for Analysis. POC Glucose, [id number] 20:32:00* Test Item Value Reference Range Comments POC Glucose (test code=POCGLUC) 475 mg/dL 70-115 Notify RN or MD POC Glucose, [id number] 20:01:00* Test Item Value Reference Range Comments POC Glucose (test code=POCGLUC) 504 mg/dL 70-115 Notify RN or MD POC Glucose, [id number] 19:46:00* Test Item Value Reference Range Comments POC Glucose (test code=POCGLUC) 556 mg/dL 70-115 Repeat Test POC Glucose, [id number] 13:21:00* Test Item Value Reference Range Comments POC Glucose (test code=POCGLUC) 185 mg/dL 70-115 If you consider your patient critically ill, the [facility] Accu-Chek InformII metershould not be used for Glucose determinations.Draw a venous Glucose and send to the Main Lab for Analysis. POC Glucose, [id number] 12:38:00* Test Item Value Reference Range Comments POC Glucose (test code=POCGLUC) 204 mg/dL 70-115 If you consider your patient critically ill, the [facility] Accu-Chek InformII metershould not be used for Glucose determinations.Draw a venous Glucose and send to the Main Lab for Analysis. POC Glucose, [id number] 11:23:00* Test Item Value Reference Range Comments POC Glucose (test code=POCGLUC) 231 mg/dL 70-115 If you consider your patient critically ill, the [facility] Accu-Chek InformII metershould not be used for Glucose determinations.Draw a venous Glucose and send to the Main Lab for Analysis. Blood Gas+Lytes+Glu+Ca+Hgb+Hct+[id number] 10:54:00* Test Item Value Reference Range Comments pH, Blood Gas (test code=BGPH) 7.416 pH Units 7.350-7.450 pCO2 (test code=PCO2) 39.2 mm Hg 15-125 pO2 (test code=PO2) 242.0 mm Hg 30-420 PO2 is not a reliable measurement of the patient's oxygenation. Reference range not established for this test. Bicarbonate (test code=HCO3) 25.1 mmol/L 22.0-26.0 Base Excess (test code=BE) 0.6 mmol/L O2 Saturation (test code=O2SAT) 100.2 % 20.0-100.0 % O2SAT is not a reliable measurement of the patient's oxygenation.Reference range not established for this test. Sodium, Blood Gas (test code=BGNA) 138 mmol/L 135-145 Potassium, Blood Gas (test code=BGK) 3.1 mmol/L 3.5-4.5 Chloride, Blood Gas (test code=BGCL) 105 98-105 Calcium, Ionized, Blood Gas (test code=BGCAI) 1.23 mmol/L 1.00-1.50 Glucose, Blood Gas (test code=BGGLU) 255 mg/dL 75-115 tHB (test code=RTHB) 11.3 gm/dL 7.0-25.0 Hematocrit, Blood Gas (test code=BGHCT) 34.6 % 34.0-52.0 O2Hb (test code=RO2HB) 98 80-100 Carboxyhemoglobin (test code=CARHGB) 0.9 % 0.0-20.0 Methemoglobin (test code=METHGB) 1.3 % 0.0-20.0 Patient Temperature (test code=PTTEMP) 37.0 Degrees Celcius Puncture Site (test code=PUNSITE) Art line Drawing Tech ID (test code=DRAWTECH) Lactic Acid, Blood Gas (test code=BGLA) 2.5 mmol/L Respiratory Rate (test code=RESP RATE) 0 POC Glucose, [id number] 09:26:00* Test Item Value Reference Range Comments POC Glucose (test code=POCGLUC) 337 mg/dL 70-115 If you consider your patient critically ill, the [facility] Accu-Chek InformII metershould not be used for Glucose determinations.Draw a venous Glucose and send to the Main Lab for Analysis. Blood Gas+Lytes+Glu+Ca+Hgb+Hct+[id number] 08:51:00* Test Item Value Reference Range Comments pH, Blood Gas (test code=BGPH) 7.358 pH Units 7.350-7.450 pCO2 (test code=PCO2) 46.1 mm Hg 15-125 pO2 (test code=PO2) 69.4 mm Hg 30-420 PO2 is not a reliable measurement of the patient's oxygenation. Reference range not established for this test. Bicarbonate (test code=HCO3) 25.9 mmol/L 22.0-26.0 Base Excess (test code=BE) 0.3 mmol/L O2 Saturation (test code=O2SAT) 93.0 % 20.0-100.0 % O2SAT is not a reliable measurement of the patient's oxygenation.Reference range not established for this test. Sodium, Blood Gas (test code=BGNA) 136 mmol/L 135-145 Potassium, Blood Gas (test code=BGK) 3.5 mmol/L 3.5-4.5 Chloride, Blood Gas (test code=BGCL) 102 98-105 Calcium, Ionized, Blood Gas (test code=BGCAI) 1.20 mmol/L 1.00-1.50 Glucose, Blood Gas (test code=BGGLU) 422 mg/dL 75-115 tHB (test code=RTHB) 11.8 gm/dL 7.0-25.0 Hematocrit, Blood Gas (test code=BGHCT) 36.2 % 34.0-52.0 O2Hb (test code=RO2HB) 91 80-100 Carboxyhemoglobin (test code=CARHGB) 1.2 % 0.0-20.0 Methemoglobin (test code=METHGB) 1.2 % 0.0-20.0 Patient Temperature (test code=PTTEMP) 37.0 Degrees Celcius Puncture Site (test code=PUNSITE) Art line Drawing Tech ID (test code=DRAWTECH) dr Lactic Acid, Blood Gas (test code=BGLA) 2.4 mmol/L Respiratory Rate (test code=RESP RATE) 0 POC Glucose, [id number] 07:43:00* Test Item Value Reference Range Comments POC Glucose (test code=POCGLUC) 260 mg/dL 70-115 If you consider your patient critically ill, the [facility] Accu-Chek InformII metershould not be used for Glucose determinations.Draw a venous Glucose and send to the Main Lab for Analysis. Lipid [id number] 16:29:00* Test Item Value Reference Range Comments Cholesterol (test code=CHOL) 227 mg/dL 0-200 Triglycerides (test code=TRIG) 152 mg/dL 9-200 HDL (test code=HDL) 77 mg/dL 50-60 Chol/HDL (test code=CHOLPHDL) 2.9 Ratio 0.0-4.4 LDL, Calculated (test code=LDLC) 120 mg/dL 0-130 (NOTE)RISK OF HEART DISEASEPublished by [place] Heart AssociationAnalyte Optimal Boderline Increased RiskCHOL <200 200-239 >240TRIG <150 150- 199 >200HDL Male: >60 <40HDL Female: >60 <50LDL <100 130-159 >160LDL NEAR OPTIMAL IS 100-129 VLDL (test code=VLDL) 30 mg/dL 5-40 LDL/HDL (test code=LDLPHDL) 2 Comprehensive Metabolic [id number] 16:29:00* Test Item Value Reference Range Comments Sodium (test code=NA) 138 mmol/L 135-145 Potassium (test code=K) 4.4 mmol/L 3.5-5.1 Chloride (test code=CL) 94 mmol/L 98-105 Carbon Dioxide (test code=CO2) 29 mmol/L 22-29 Glucose (test code=GLU) 302 mg/dL 70-115 Blood Urea Nitrogen (test code=BUN) 17 mg/dL 8-23 Creatinine (test code=CREAT) 0.6 mg/dL 0.5-0.9 Calcium (test code=CA) 10.2 mg/dL 8.3-10.5 Prot Total (test code=TP) 7.5 g/dL 6.4-8.3 Albumin (test code=ALB) 4.5 g/dL 3.5-5.2 A/G Ratio (test code=AGRATIO) 1.5 Ratio Globulin (test code=GLOB) 3.0 2.9-3.1 Bili Total (test code=TBIL) 0.4 mg/dL 0.1-0.9 Alk Phos (test code=APHOS) 58 U/L 35-104 AST (test code=AST) 12 U/L 1-32 ALT (test code=ALT) 9 U/L 1-33 BUN/Creatinine Ratio (test code=BCRATIO) 28.3 Anion Gap (test code=AGAP) 15 mmol/L 7-16 Estimated GFR (test code=GFR) >60 mL/min/1.73m2 eGFR (estimated Glomerular Filtration Rate) is an estimated value,calculated from the patient's serum creatinine using the MDRD equation.It is NOT the patient's actual GFR. The eGFR provides a more clinicallyuseful measure of kidney disease than serum creatinine alone.This calculation takes sex and race into account, if the informationis provided. If the race is not provided, and the patient isAfrican-[place], multiply by 1.212. If sex is not provided, and thepatient is female, multiply by 0.742. Results for patients <18 years ofage have not been validated by the MDRD study and should be interpretedwith caution.eGFR Result Interpretation:eGFR > or=60 is in the Normal RangeeGFR < 60 may mean kidney diseaseeGFR < 15 may mean kidney failureRanges recommended by the National Kidney Foundat ion,http://nkdep.nih.gov Urinalysis [id number] 16:05:00* Test Item Value Reference Range Comments Color (test code=COLOR) Straw Yellow,Straw,Pl yellow Clarity (test code=CLAR) Clear Clear Specific [place] (test code=SPGR) 1.031 1.001-1.035 pH (test code=PH) 5.0 5.0-9.0 Ketone (test code=KET) Negative mg/dL Negative Glucose (test code=GLUCUR) 1000 mg/dL Negative Protein (test code=PROT) Negative mg/dL Negative Bilirubin (test code=BILI) Negative mg/dL Negative Occult Blood (test code=UDOB) Negative Negative Urobilinogen (test code=UROB) 0.2 mg/dL 0.2-1.0 Nitrite (test code=NIT) Negative Negative Leuk Esterase (test code=LEUK) Negative Negative Micros Exam (test code=MEXAM) Indicated Epithelial Cells (test code=EPI) 6-9 /LPF 0-30 WBC, Urine (test code=UWBC) 0-5 /HPF 0-5 RBC, Urine (test code=URBC) 0-3 /HPF 0-5 Bacteria (test code=BACT) None /HPF Prothrombin [id number] 15:49:00* Test Item Value Reference Range Comments PT (test code=PT) 10.60 seconds 9.78-13.35 INR (test code=INR) 0.93 Ratio 0.6-1.2 Partial Thromboplastin [id number] 15:49:00* Test Item Value Reference Range Comments aPTT (test code=PTT) 26.20 seconds 24.39-37.25 CBC with [id number] 15:31:00* Test Item Value Reference Range Comments WBC (test code=WBC) 9.3 K/cumm 4.4-10.5 RBC (test code=RBC) 4.83 M/cumm 3.75-5.20 Hemoglobin (test code=HGB) 13.8 gm/dL 12.2-14.8 Hematocrit (test code=HCT) 45.7 % 36.5-44.4 MCV (test code=MCV) 94.6 fL 80-100 MCH (test code=MCH) 28.6 pg 27.0-32.5 MCHC (test code=MCHC) 30.3 g/dL 32.0-37.5 RDW (test code=RDW) 14.0 % 11.5-14.5 Platelet Count (test code=PLTCT) 272 K/cumm 140-440 MPV (test code=MPV) 11.3 fL Diff Method (test code=DIFFM) Auto Neutrophil (test code=NEUT) 59.4 % 36-70 Lymphocyte (test code=LYMPH) 34.9 % 12-44 Monocyte (test code=MONO) 3.4 % 0-11 Eosinophil (test code=EOS) 1.6 % 0-7 Basophil (test code=BASO) 0.7 % 0-2 Neutro Abs (test code=ANEUT) 5.5 K/cumm 1.6-7.4 Lymph Abs (test code=ALYMPH) 3.2 K/cumm 0.5-4.6 [place] Abs (test code=AMONO) 0.3 K/cumm 0.0-1.2 [place] Abs (test code=AEOS) 0.15 K/cumm 0.00-0.74 Baso Abs (test code=ABASO) 0.1 K/cumm 0.00-0.21
[2018-08-11 04:26] LABS: BASOPHILS % 0.1 % (0.0-1.0); EOSINOPHILS # (AUTO) 0.1 (0.0-0.4); HEMATOCRIT 37.3 % (34.2-44.1); HEMOGLOBIN 13.4 g/dL (12.0-16.0); LYMPHOCYTES # (AUTO) 3.3 (1.0-3.2); LYMPHOCYTES % 35.8 % (18.0-39.1); MEAN CORPUSCULAR HEMOGLOBIN 32.5 pg (28-32); MEAN CORPUSCULAR HGB CONC 35.9 g/dL (31-35); MEAN CORPUSCULAR VOLUME 90.5 fL (81-99); MONOCYTES # (AUTO) 0.2 (0.2-0.8); MONOCYTES % 1.8 % (4.4-11.3); NEUTROPHILS # (AUTO) 5.5 (2.1-6.9); PLATELET COUNT 271 x10e3/uL (140-360); RED BLOOD COUNT 4.12 x10e6/uL (3.6-5.1); RED CELL DISTRIBUTION WIDTH 12.9 % (11.7-14.4)
[2018-08-11 04:44] LABS: ALBUMIN 3.2 g/dL (3.5-5.0); ALBUMIN/GLOBULIN RATIO 1.1 (0.8-2.0); ANION GAP 19.7 mmol/L (8-16); CALCIUM 9.3 mg/dL (8.4-10.2); CREATININE, SERUM 1.29 mg/dL (0.57-1.11); POTASSIUM 3.7 mmol/L (3.5-5.1)
[2018-08-11] MEDS ORDERED: SODIUM CHLORIDE 0.9% 1000ML 1,000 ML IV SCH (04:45)
[2018-08-11] MEDS ORDERED: INSULIN REGULAR, HUMAN 100 UNIT/1 ML 3ML VIAL IV ONE (05:15)
[2018-08-11 06:23] LABS: ANION GAP 14.1 mmol/L (8-16); CALCIUM 8.5 mg/dL (8.4-10.2); CREATININE, SERUM 1.01 mg/dL (0.57-1.11); POTASSIUM 3.1 mmol/L (3.5-5.1)
[2018-08-11 06:48] VITALS: BP 106/50
== END 2018-08-11 06:49 | disposition home or self-care (01) ==
LOC: ER 04:10
DX: E11.65 Type 2 diabetes mellitus with hyperglycemia (principal); E78.00 Pure hypercholesterolemia, unspecified
CPT/HCPCS: 36415; 80048; 80053; 85025; 99283; J7030

== ENCOUNTER 2019-10-28 20:33 | Emergency (ER) | payer OTHER ==
[~2019-10-28] VITALS: Ht 149.9 cm; Wt 77.1 kg
[2019-10-28] MEDS ORDERED: ONDANSETRON HCL INJ 2MG/ML 2ML 2 MG/ML VIAL IV STA (20:41)
[2019-10-28] MEDS ORDERED: SODIUM CHLORIDE 0.9% 1000ML 1,000 ML IV ONE ×2 (20:45→23:00)
[2019-10-28 21:00] LABS: BASOPHILS # (AUTO) 0.1 (0.0-0.1); BASOPHILS % 0.5 % (0.0-1.0); EOSINOPHILS # (AUTO) 0.2 (0.0-0.4); EOSINOPHILS % 1.7 % (0.0-6.0); HEMATOCRIT 43.6 % (34.2-44.1); HEMOGLOBIN 14.1 g/dL (12.0-16.0); LYMPHOCYTES % 24.6 % (18.0-39.1); MEAN CORPUSCULAR HEMOGLOBIN 31.3 pg (28-32); MEAN CORPUSCULAR HGB CONC 32.3 g/dL (31-35); MEAN CORPUSCULAR VOLUME 96.9 fL (81-99); MONOCYTES # (AUTO) 0.8 (0.2-0.8); MONOCYTES % 6.2 % (4.4-11.3); NEUTROPHILS % 66.5 % (38.7-80.0); PLATELET COUNT 328 x10e3/uL (140-360); RED CELL DISTRIBUTION WIDTH 13.2 % (11.7-14.4)
[2019-10-28 21:13] LABS: ALBUMIN 3.9 g/dL (3.5-5.0); ALBUMIN/GLOBULIN RATIO 0.9 (0.8-2.0); ANION GAP 18.2 mmol/L (8-16); CALCIUM 10.2 mg/dL (8.4-10.2); CREATININE, SERUM 1.54 mg/dL (0.57-1.11); POTASSIUM 4.2 mmol/L (3.5-5.1)
[2019-10-28 21:27] LABS: AMYLASE 54 U/L (25-125); LIPASE 30 U/L (8-78)
--- NOTE | 2019-10-28 21:34 | Diagnostic Imaging Report ---
EXAM: X-ray chest 1 view and x-ray abdomen 2 views INDICATION: diarrhea, belching, mid abdominal pain COMPARISON: None FINDINGS: Lines/tubes: None Lungs/airways: Hyperinflated lungs. Mild prominence of pulmonary vasculature. No consolidations. Pleura: No pleural effusion or pneumothorax. Cardiomediastinum: Heart size within normal limits. Aortic calcifications. Abdomen: Nonobstructive bowel gas. Mild hepatomegaly. Pelvic clips. Stool burden within normal limits. Pelvic phleboliths. Vascular calcifications. No pneumoperitoneum. Cholecystectomy clips. Bones: Degenerative changes in the shoulders, spine, hips, and pelvis. Soft tissues: No gross soft tissue abnormalities. IMPRESSION: Nonobstructive bowel gas pattern. Hyperinflated lungs as seen with obstructive pulmonary disease. Hepatomegaly. Signed by: Marcelino Simms DO on 10/28/2019 9:30 PM
[2019-10-28] MEDS ORDERED: DIPHENOXYLATE/ATROPINE TAB PO ONE (22:15)
[2019-10-28 22:35] LABS: CLARITY,URINE CLOUDY (CLEAR); COLOR,URINE YELLOW (YELLOW)
[2019-10-28 22:36] LABS: BILIRUBIN,URINE 1+ (NEGATIVE); KETONES,URINE TRACE (NEGATIVE); LEUKOCYTE ESTERASE ,URINE 1+ (NEGATIVE); NITRITE,URINE NEGATIVE (NEGATIVE); PROTEIN,URINE DIPSTICK 2+ (NEGATIVE); URINE UROBILINOGEN 0.2 mg/dL (0.2 - 1)
[2019-10-28 22:48] LABS: BACTERIA,URINE MANY /HPF; EPITHELIAL CELLS,URINE FEW /LPF; RBC,URINE 21-50 /HPF (0-5); RENAL EPITHELIAL CELLS,URINE FEW; TRANSITIONAL EPI CELLS,URINE MANY; WBC,URINE (MAN) >50 /HPF (0-5)
[2019-10-28] MEDS ORDERED: CEFTRIAXONE SOD 1 GM/NS 50 ML 50 ML IV ONE (23:00)
[2019-10-28] MEDS ORDERED: SODIUM CHLORIDE 0.9% 1000ML 1,000 ML ONE (23:03)
== END 2019-10-28 23:55 | disposition home or self-care (01) ==
LOC: ER 20:33
DX: R19.7 Diarrhea, unspecified (principal); R11.0 Nausea; N30.91 Cystitis, unspecified with hematuria; E11.9 Type 2 diabetes mellitus without complications; E78.00 Pure hypercholesterolemia, unspecified
CPT/HCPCS: 36415; 74022; 80053; 81001; 82150; 82948; 83690; 85025; 99284; J0696; J2405; J7030